=== PATIENT | female | born 1990 | race Caucasian/White ===

== ENCOUNTER 2024-01-04 09:55 | Emergency (ER) | payer BC, SELFPAY ==
--- NOTE | ~2024-01-04 | CT_ITS ---
EXAMINATION: CT abdomen pelvis wo con DATE: 01/04/2024 10:36 INDICATION: Bilateral flank pain. Dysuria. TECHNIQUE: Computed tomography (CT) of the abdomen and pelvis was performed without intravenous contr ast. Automated exposure control and iterative reconstruction technique were employed. The dose-length product was 1393.14 mGy-cm. COMPARISON: None. FINDINGS: The visualized portions of the lung bases are clear without pneumonia or pleural effusion. The heart size is normal. No pericardial effusion. There is diffuse hepatic steatosis. The gallbladde r, spleen, pancreas, adrenal glands, and right kidney are normal. There is a 4 mm stone in left kidne y. There are no dilated loops of bowel. The appendix is normal. There are no pathologically enlarged lymph nodes. There is no free intraperitoneal fluid. There is mild lumbar spondylosis. IMPRESSION: 1. 4 mm nonobstructing left kidney stone. 2. Diffuse hepatic steatosis. Reviewed, dictated and finalized at location A.
[2024-01-04 10:15] LABS: Appearance Urine Cloudy (Clear); Bilirubin Urine Negative (Negative); Blood Urine Negative (Negative); Color Urine Dark Yellow (Yellow); Glucose Urine UA Negative (Negative); Ketones Urine 1+ mg/dL (Negative); Leukocyte Esterase Ur 1+ LEU/UL (Negative); Nitrate Urine Negative (Negative); Protein Urine Trace mg/dL (Negative); Urobilinogen Urine 0.2 mg/dL (<2.0); pH Urine 5.5 (5.0-9.0)
[2024-01-04 10:20] LABS: Basophils Absolute Auto 0.1 K/mm3 (0.0-0.1); Eosinophils Absolute Auto 0.4 K/mm3 (0-0.3); Hematocrit 41.1 % (37.0-47.0); Hemoglobin 12.8 g/dL (12.0-15.0); Immature Granulocyte Absolute 0.05 K/mm3 (0.00-0.031); Immature Granulocyte Percent A 0.5 % (0-0.5); Lymphocytes Absolute Auto 2.87 K/mm3 (0.9-3.2); Lymphocytes Percent Auto 27.3 % (18.3-44.2); Mean Corpuscular HGB Conc 31.1 g/dl (32-36); Mean Corpuscular Hemoglobin 25.7 pg (26-34); Mean Corpuscular Volume 82.4 fl (80-100); Mean Platelet Volume 10.7 fl (7.4-10.4); Monocytes Absolute Auto 0.7 K/mm3 (0.1-0.6); Monocytes Percent Auto 6.3 % (2.6-8.5); Neutrophils Absolute Auto 6.4 K/mm3 (1.3-6.7); Neutrophils Percent Auto 60.9 % (45.5-73.1); Platelet Count Result 326 k/mm3 (150-375); Red Blood Count 4.99 M/mm3 (4.2-5.4); Red Cell Distribution Width 14.7 % (11.5-14.5); White Blood Count 10.5 K/mm3 (4.5-10.0)
[2024-01-04 10:22] LABS: Specific Grav Ur 1.042 (1.001-1.035)
--- NOTE | 2024-01-04 10:29 | ED.BACK ---
HPI - Back Pain/Injury General Chief Complaint: Back Pain/Injury Stated Complaint: bilat flank pain, UTI symtpoms, nausea Time Seen by Provider: 01/04/24 10:13 Source: patient Mode of arrival: ambulatory Limitations: no limitations History of Present Illness HPI Narrative: Patient is a 33-year-old female who presents to the ED with report of right flank pain. Patient reports pain began this morning around 7:00 a.m. and is fairly severe. She tried taking ibuprofen without improvement. Pain does slightly radiate around to her right lower abdomen. Denies history of kidney stones. Reports nausea and mild dysuria. 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 She has been seeing a specialist at [facility] for this. Denies vomiting, fevers, hematuria, diarrhea, constipation. Related Data Allergies Allergy/AdvReac Type Severity Reaction Status Date / Time Desai Allergy Unknown Hives / Uncoded 01/04/24 09:59 Red Face Review of Systems Review of Systems: CONSTITUTIONAL: Denies fever, chills, or sweats. GASTROINTESTINAL: See HPI. GENITOURINARY: See HPI. MUSCULOSKELETAL: See HPI. All systems reviewed & are unremarkable except as noted in HPI and below Exam Narrative: GENERAL: Well appearing, morbidly obese with BMI of 50.4, non-toxic, in no acute distress. HEAD: Normocephalic, atraumatic. RESPIRATORY: Airway patent, respirations nonlabored. Clear to auscultation bilaterally, no rales, rhonchi, wheezing. CARDIOVASCULAR: Regular rate and rhythm without murmurs, rubs, or gallops. ABDOMINAL: Soft, mild tenderness in right lower/lateral abdomen. No significant right upper quadrant tenderness. Nondistended. Normoactive BS. +mild cva tenderness to percussion on R. MUSCULOSKELETAL: Moves all extremities. No gross deformities. SKIN: Warm, dry, normal color. NEURO: A&O X3. Speech clear. PSYCHIATRIC: Appropriate mood and affect. Normal interaction. MDM - Back Pain/Injury MDM Narrative Medical decision making narrative: Patient presented to ED with onset of right flank pain this morning, associated with nausea and dysuria. Vital signs are stable upon arrival. Patient in no acute distress. Does appear mildly uncomfortable. No previous history of kidney stones. CBC with leukocytosis of 10.5. CMP unremarkable, stable kidney function, normal LFTs and lipase. Urine with possible infection, 1+ leuk esterase, 4-6 WBC, 1+ urine bacteria, though moderate squamous cells. Sent for culture. Will treat as patient acutely symptomatic. Keflex sent to pharmacy. CT abdomen pelvis obtained and showing left sided kidney stone, no ureterolithiasis. No other significant abnormalities. On re-evaluation, patient is feeling significantly better with supportive therapy. Pain nearly resolved. Discussed lab and imaging findings, treatment of UTI with antibiotics. Patient is in agreement with this plan. Feels comfortable w/ discharge home. She has a follow-up appointment with urologist at outside hospital on Monday. Recommended patient also follow-up with primary care doctor for urine culture results, continue Tylenol and ibuprofen, heat/ice as needed for pain. Discussed strict return precautions, discharged in stable condition. Medical Records Attestation: I reviewed the patient's medical records. Lab Data Attestation: I reviewed the patient's lab results. 01/04/24 10:13 01/04/24 10:13 Labs: Lab Results 01/04/24 01/04/24 Range/Units 10:07 10:13 WBC 10.5 H (4.5-10.0) K/mm3 RBC 4.99 (4.2-5.4) M/mm3 Hgb 12.8 (12.0-15.0) g/dL Hct 41.1 (37.0-47.0) % MCV 82.4 (80-100) fl MCH 25.7 L (26-34) pg MCHC 31.1 L (32-36) g/dl RDW 14.7 H (11.5-14.5) % Plt Count 326 (150-375) k/mm3 MPV 10.7 H (7.4-10.4) fl Immature Gran % (Auto) 0.5 (0-0.5) % Neut % (Auto) 60.9 (45.5-73.1) % Lym
[2024-01-04 10:34] LABS: Add Urine Microscopic? YES
[2024-01-04 10:36] LABS: Alanine Aminotransferase 36 U/L (6-35); Albumin Level 4.7 g/dL (3.5-5.1); Alkaline Phosphatase 97 U/L (38-126); Anion Gap 7 mmol/L (4-12); Aspartate Amino Transferase 26 U/L (14-36); Bilirubin,Total 0.5 mg/dL (0.2-1.3); Blood Urea Nitrogen 12 mg/dL (7-17); Calcium 10.1 mg/dL (8.4-10.2); Carbon Dioxide 27 mmol/L (22-30); Chloride 103 mmol/L (98-107); Estimated CRCL calculation 139 ml/min; Estimated Glomerular Filt Rate > 60; Glucose 99 mg/dL (65-110); Lipase 88 U/L (23-300); Potassium 4.2 mmol/L (3.4-5.0); Sodium 137 mmol/L (137-145)
[2024-01-04 10:38] LABS: Bacteria Urine 1+ /hpf; Mucus Urine Few /lpf; RBC Urine 0-2 /hpf (0-2); Squamous Epithelial Cell Urine Moderate /hpf (Few)
[2024-01-04 10:59] VITALS: BP 135/85; PULSE 78; RESP 16; TEMP 37; O2SAT 100
[2024-01-04] MEDS: SODIUM CHLORIDE 0.9% IV 1,000 ML 999 ML IV CONT (10:59)
[2024-01-04] MEDS: MORPHINE SULFATE (*CRX) 4 MG/ML INJ IV PUSH (11:00)
[2024-01-04] MEDS: ONDANSETRON INJ 4 MG/2 ML VIAL IV PUSH (11:00)
[2024-01-04] MEDS: KETOROLAC 30 MG/ML VIAL (*BKC) IV PUSH (11:02)
[2024-01-04 11:31] VITALS: BP 118/60; PULSE 74; RESP 16; TEMP 36.7; O2SAT 98
[2024-01-04 12:03] VITALS: BP 140/94; PULSE 76; RESP 16; O2SAT 97
== END 2024-01-04 12:22 | disposition home or self-care (01) ==
PROVIDERS: Emergency Medicine; Emergency Provider Physician Assistant
DX: N30.00 Acute cystitis without hematuria (principal); N20.0 Calculus of kidney; M54.50 Low back pain, unspecified; K76.0 Fatty (change of) liver, not elsewhere classified
CPT/HCPCS: 36415; 74176; 80053; 81001; 81025; 83690; 85025; 96361; 96374; 96375; 99284; J1885; J2270; J2405; J7030

== ENCOUNTER 2024-06-13 11:20 | Emergency (ER) | payer BC, SELFPAY ==
--- NOTE | 2024-06-13 11:31 | ED.URI ---
HPI - URI/Sore Throat General Chief Complaint: Upper Respiratory Infection Stated Complaint: sinus infection/ear pain Time Seen by Provider: 06/13/24 11:31 Source: patient and RN notes reviewed Mode of arrival: ambulatory Limitations: no limitations History of Present Illness HPI Narrative: 33-year-old female presented for complaint of nasal congestion and pressure, cough and bilateral ear pressure worsening over the past 2 days. Denies shortness of breath, wheezing nausea vomiting, fevers or chills. Has taken ibuprofen. MD elicited complaint: cough Related Data Home Medications Medication Instructions Recorded Confirmed fluoxetine 60 mg tablet 60 mg PO DAILY 06/13/24 06/13/24 lamotrigine 100 mg tablet 100 mg PO BID 06/13/24 06/13/24 zolpidem 10 mg tablet 10 mg PO DAILY 06/13/24 06/13/24 Allergies Allergy/AdvReac Type Severity Reaction Status Date / Time Sulfa (Sulfonamide Allergy Swelling Verified 06/13/24 11:31 Antibiotics) Desai Allergy Unknown Hives / Uncoded 01/04/24 09:59 Red Face Review of Systems Review of Systems: CONSTITUTIONAL: denies malaise, chills, sweats, fever EYES: Denies visual changes, redness, or discharge ENT: Reports rhinorrhea, congestion, sinus pain, otalgia, denies sore throat CARDIOVASCULAR: Denies chest pain, palpitations, edema RESPIRATORY: Reports cough, post nasal drainage. Denies dyspnea GASTROINTESTINAL: Denies abdominal pain, nausea, vomiting, diarrhea SKIN: Denies rash or itching MUSCULOSKELETAL: denies myalgia Exam Narrative: GENERAL: well-appearing no acute distress. EYES: conjunctivae clear ENT: Mucous membranes moist. TMs pearly felton with dull light reflex bilaterally; no tragal tenderness. Oropharynx not erythematous without lesions or exudate, no drooling, no hoarseness, no trismus, uvula midline. No tripod positioning, muffled voice, soft palate or pharyngeal wall bulging NECK: Supple. No lymphadenopathy CHEST: Clear to auscultation, breath sounds equal. No wheezing, rhonchi, rales, or stridor. No respiratory distress, speaks in full sentences. HEART: Regular rate and rhythm. No murmur heard. SKIN: Warm, dry, no rash. NEURO: Alert and oriented x3. PSYCH: Normal mood and affect Course Course Emergency Course: Patient is aware of diagnosis, understands and agrees to treatment plan. Anticipatory guidance given. Patient agrees to follow-up as directed and is aware of reasons to seek care at the emergency department. Portions of this record may have been created with voice recognition software Level of Care: Express Care Visit Vital Signs Vital signs: reviewed MDM - URI/Sore Throat MDM Narrative Medical decision making narrative: Discussed physical exam findings. declined viral testing. Advised supportive measures and signs/symptoms to go to the ER. Pt is appropriate for outpt treatment and f/u. Differential Diagnosis Differential diagnosis: Likely upper respiratory infection, sinusitis and viral infection Discharge Plan Discharge Clinical Impression: Upper respiratory infection Qualifiers: URI type: unspecified URI Qualified Code(s): J06.9 - Acute upper respiratory infection, unspecified Patient Disposition: Home, Self-Care Condition: Stable Instructions: Antibiotic Form, Upper Respiratory Infection (ED) Additional Instructions: Recommend Flonase spray and Zyrtec (or Claritin/Dione) - You can use Afrin spray for a maximum of 3 days over the counter Cough syrup may cause drowsiness; avoid driving or take it at night time. Tylenol 1000mg every 8 hours as needed for pain Symptomatic treatment includes: rest, fluids, and increase humidity of the air at home. Follow up with your primary care provider in 1 week. Go to the ER for worsening symptoms or concerns. Prescriptions: No Action cephalexin 500 mg capsule 500 mg PO Q6H 7 Days Qty: 28 0RF Follow-up/Referrals: PHYSICIAN NOT ON STAFF,NONSTAFF [Primary C
[2024-06-13 11:33] VITALS: BP 137/66; PULSE 76; RESP 16; TEMP 36.7; O2SAT 100
== END 2024-06-13 11:43 | disposition home or self-care (01) ==
PROVIDERS: Emergency Provider Nurse Practitioner Family
DX: J06.9 Acute upper respiratory infection, unspecified (principal)
CPT/HCPCS: 99211; G0463